=== PATIENT | female | born 1975 | race Caucasian/White ===

== ENCOUNTER → 2017-06-12 16:45 | Outpatient (CLI) | payer MEDICAID ==
[2013-07-24 15:25] VITALS: BMI 25.0
[~2017-06-12 16:45] MED LIST: MOTRIN600 MG PO; PERCOCET 10/3251 TA1 PO
== END | disposition home or self-care (01) ==
LOC: D.MAMMO 09:30
DX: Z12.31 Encounter for screening mammogram for malignant neoplasm of breast (principal)

== ENCOUNTER → 2017-07-07 16:50 | Outpatient (CLI) | payer MEDICAID ==
[2013-07-24 15:25] VITALS: BMI 25.0
== END | disposition home or self-care (01) ==
LOC: D.MAMMO 09:00
DX: R92.8 Other abnormal and inconclusive findings on diagnostic imaging of breast (principal)

== ENCOUNTER 2019-07-29 10:30 | Outpatient (CLI) | payer OTHER ==
[2013-07-24 15:25] VITALS: BMI 25.0
== END 2019-07-29 11:00 | disposition home or self-care (01) ==
LOC: D.MAMMO 10:30
PROVIDERS: ATTEND Family Medicine
DX: Z12.31 Encounter for screening mammogram for malignant neoplasm of breast (principal)